=== PATIENT | female | born 1985 | race Two or more races ===

== ENCOUNTER → 2023-08-13 | Emergency (ER) | payer OTHER ==
[~2023-08-13] VITALS: Ht 170.2 cm; Wt 88.5 kg
[~2023-08-13] MED LIST: CHILDREN'S ASPI81 MG PO; KETOROLAC TROMETHAMINE 30 MG VIAL IM ONE; LIPITOR40 M1 PO; NORVASC5 MG PO; ZESTRIL5 MG PO
== END | disposition home or self-care (01) ==
LOC: ER 20:51
DX: M79.673 Pain in unspecified foot (principal); I10 Essential (primary) hypertension